=== PATIENT | female | born 1965 | race Caucasian/White ===

== ENCOUNTER → 2017-09-05 | Outpatient (CLI) | payer OTHER ==
[~2017-09-05] MED LIST: AGGRENOX1 CAPSULE PO; ASCORBIC ACID500 M3 PO; ASPIRIN325 MG PO; ATORVASTATIN CA40 MG PO; Aspirin PO; CHILD ASPIRIN81 M1 PO; Diabeta,Micronase PO; FISH OIL 1,2001 EAC4 PO; GEMFIBROZIL600 MG PO; GLUCOPHAGE1000 MG PO; GLUCOPHAGE500 MG PO; GLYBURIDE5 MG PO; Glucophage PO; LIPITOR20 MG PO; LISINOPRIL20 MG PO; LOPID600 MG PO; Lipitor PO; Lopid PO; NICODERM CQ1 EAC2 TD; SIMVASTATIN40 MG PO; SUPPLEMENT PO; THERAGRAN1 TABLET PO; TRIPLE ANTIB28.35 GM TP; TYLENOL EXTRA500 MG PO; VITAMIN B-12250 MCG PO; VITAMIN D1000 INTUN PO; ZOCOR40 MG PO; Zestril,Prinivil PO
== END | disposition home or self-care (01) ==
LOC: CDC 11:27
DX: Z01.810 Encounter for preprocedural cardiovascular examination (principal); I70.25 Atherosclerosis of native arteries of other extremities with ulceration; R94.31 Abnormal electrocardiogram [ECG] [EKG]
CPT/HCPCS: 93000

== ENCOUNTER 2017-09-12 12:33 | Inpatient (IN) | payer OTHER ==
[~2017-09-12] VITALS: Ht 157.5 cm; Wt 81.0 kg
[~2017-09-12 12:33] MED LIST changes: -LISINOPRIL20 MG PO; +ZESTRIL40 MG PO
[2017-09-12 12:53] LABS: BASOPHIL (%) 0.7 % (0-1); BASOPHIL COUNT 0.1 K/uL (0-0.1); EOSINOPHIL (%) 3.2 % (0-5); EOSINOPHIL COUNT 0.2 K/uL (0-0.3); HEMATOCRIT 37.8 % (36.0-46.0); HEMOGLOBIN 12.9 G/DL (11.9-15.5); IMMATURE GRANULOCYTE (%) 0.4 % (0.0-0.7); LYMPHOCYTE (%) 29.5 % (15-42); MCH 31.6 PG (29.0-34.0); MCHC 34.1 G/DL (30.0-36.0); MCV 92.6 FL (83-99); MONOCYTE (%) 9.7 % (3-12); MONOCYTE COUNT 0.7 K/uL (0-0.8); NEUTROPHIL (%) 56.5 % (45-76); NEUTROPHIL COUNT 3.9 K/uL (1.8-6.4); PLATELET COUNT 269 K/uL (156-360); RBC DIS.WIDTH-CV 12.5 % (11.8-14.6); RBC DIS.WIDTH-SD 42.5 % (39-53); RED BLOOD COUNT 4.08 M/uL (3.80-5.20); WHITE BLOOD COUNT 6.9 K/uL (4.1-10.2)
[2017-09-12 13:02] LABS: PTT 29.6 SEC (25-37)
[2017-09-12 13:07] LABS: ALBUMIN 4.4 g/dL (3.2-4.8)
[2017-09-12 13:08] LABS: CHLORIDE 108 mEq/L (99-109); POTASSIUM 5.2 mEq/L (3.7-5.4); SODIUM 137 mEq/L (136-147)
[2017-09-12 13:10] LABS: GLUCOSE 190 mg/dL (70-99); TOTAL PROTEIN 7.7 g/dL (6.4-8.3)
[2017-09-12 13:12] LABS: TOTAL BILIRUBIN 0.2 mg/dL (0.0-1.0)
[2017-09-12 13:13] LABS: ALKALINE PHOSPHATASE 54 IU/L (3-129)
[2017-09-12 13:14] LABS: CREATININE 1.4 mg/dL (0.6-1.3); GFR ESTIMATE (CALCULATED) 42 mL/min/
[2017-09-12 13:15] LABS: AST (GOT) 14 IU/L (2-34); UREA NITROGEN (BUN) 44 mg/dL (9-23)
[2017-09-12 13:17] LABS: ALT (GPT) 11 IU/L (3-49); TROP-I INTERPRETATION NEGATIVE; TROPONIN-I 0.04 ng/mL (0.0-0.30)
[2017-09-12 13:38] LABS: HDL CHOLESTEROL 50 MG/DL (Desirable>=50); LDL CHOLESTEROL 135 mg/dL (Desirable<100); NON-HDL CHOLESTEROL 163 mg/dL (Desirable<160); TOTAL CHOLESTEROL 213 mg/dL (Desirable<200); TRIGLYCERIDES 142 MG/DL (Normal: <150)
[2017-09-12 14:19] LABS: APPEARANCE CLEAR ((CLEAR)); BILIRUBIN NEGATIVE; BLOOD NEGATIVE; COLOR STRAW ((YELLOW)); GLUCOSE (STRIP) 50; KETONES NEGATIVE; LEUKOCYTES NEGATIVE; NITRITE NEGATIVE; PROTEIN (STRIP) >=500; SPECIFIC GRAVITY 1.016 (1.000-1.030); UROBILINOGEN 0.2 MG/DL (0.2-1.0)
[2017-09-12 14:23] LABS: BACTERIA RARE /HPF; EPITHELIAL CELLS RARE /HPF; MUCUS TRACE /LPF; RED BLOOD CELLS 0-5 /HPF (0-5); UCUL ADDED? NO; WHITE BLOOD CELLS 0-5 /HPF (0-5)
[2017-09-12] MEDS ORDERED: CILOSTAZOL100 MG PO (15:02)
[2017-09-12] MEDS ORDERED: TRULICITY0.75 MG/0. SC (15:02)
[2017-09-12] MEDS ORDERED: CRESTOR20 MG PO (15:03)
[2017-09-12 17:25] VITALS: BP 140/78
[2017-09-12 20:00] VITALS: BP 131/72
[2017-09-13] VITALS: BP 146/70
[2017-09-13 04:00] VITALS: BP 117/67
[2017-09-13 05:54] LABS: BASOPHIL (%) 0.8 % (0-1); EOSINOPHIL (%) 4.3 % (0-5); EOSINOPHIL COUNT 0.2 K/uL (0-0.3); HEMATOCRIT 34.2 % (36.0-46.0); HEMOGLOBIN 11.2 G/DL (11.9-15.5); IMMATURE GRANULOCYTE (%) 0.4 % (0.0-0.7); LYMPHOCYTE (%) 38.8 % (15-42); LYMPHOCYTE COUNT 1.9 K/uL (1.0-2.8); MCH 30.9 PG (29.0-34.0); MCHC 32.7 G/DL (30.0-36.0); MCV 94.2 FL (83-99); MONOCYTE COUNT 0.5 K/uL (0-0.8); NEUTROPHIL (%) 44.7 % (45-76); NEUTROPHIL COUNT 2.2 K/uL (1.8-6.4); PLATELET COUNT 233 K/uL (156-360); RBC DIS.WIDTH-CV 12.8 % (11.8-14.6); RBC DIS.WIDTH-SD 43.9 % (39-53); RED BLOOD COUNT 3.63 M/uL (3.80-5.20); WHITE BLOOD COUNT 4.9 K/uL (4.1-10.2)
[2017-09-13 06:41] LABS: CHLORIDE 111 MEQ/L (99-109); CREATININE 1.2 MG/DL (0.6-1.3); GFR ESTIMATE (CALCULATED) 50 mL/min/; POTASSIUM 5.1 MEQ/L (3.7-5.4); SODIUM 141 MEQ/L (136-147); UREA NITROGEN (BUN) 36 mg/dL (9-23)
[2017-09-13 06:43] LABS: GLUCOSE 97 mg/dL (70-99)
[2017-09-13 07:32] VITALS: BP 118/70
[2017-09-13 08:58] LABS: HEMOGLOBIN A1c (GLYCOHEMOGLOB) 8.6 % (Below 5.7)
[2017-09-13] MEDS ORDERED: CRESTOR40 MG PO (09:28)
== END 2017-09-13 11:05 | disposition home or self-care (01) | DRG 66 ==
LOC: EME 12:33 → EDOF 15:38 → ENRESERV 16:04 → 5SOUTH 17:11
PROVIDERS: Emergency Medicine; Hospitalist; Physician Assistant
DX: I63.9 Cerebral infarction, unspecified (principal); I65.23 Occlusion and stenosis of bilateral carotid arteries; R47.81 Slurred speech; R47.1 Dysarthria and anarthria; I69.392 Facial weakness following cerebral infarction; E86.0 Dehydration; I10 Essential (primary) hypertension; E78.5 Hyperlipidemia, unspecified; E11.51 Type 2 diabetes mellitus with diabetic peripheral angiopathy without gangrene; E04.9 Nontoxic goiter, unspecified; F32.9 Major depressive disorder, single episode, unspecified; F41.9 Anxiety disorder, unspecified; Z87.891 Personal history of nicotine dependence
CPT/HCPCS: 70450; 70496; 70498; 70551; 80048; 80053; 80061; 81003; 82948; 83036; 84484; 85025; 85610; 85730; 93005; 99281; 99285; J1644; J7030; J7040